=== PATIENT | male | born 1980 ===

== ENCOUNTER 2025-03-23 05:53 | Emergency (ER) | payer SELFPAY ==
[~2025-03-23] VITALS: Ht 172.7 cm; Wt 82.0 kg
[2025-03-23 06:20] VITALS: PULSE 87; RESP 19; O2SAT 92
[2025-03-23] MEDS: PREDNISONE 20MG TABLET PO ONE (06:20)
[2025-03-23] MEDS: ALBUTEROL (0.083%) 2.5MG/3ML NEB HHN SCH (06:20)
[2025-03-23] MEDS: IPRATROPIUM BROMIDE (0.02%) 0.5MG/2.5ML NEB HHN SCH (06:20)
[2025-03-23] MEDS ORDERED: ALBU90AE INH (07:30)
[2025-03-23] MEDS ORDERED: P50 PO (07:30)
[2025-03-23 08:02] VITALS: BP 126/80; PULSE 98; RESP 15; TEMP 36.7; O2SAT 95
== END 2025-03-23 08:05 | disposition home or self-care (01) ==
LOC: ER 05:53
DX: J45.901 Unspecified asthma with (acute) exacerbation (principal); Z79.52 Long term (current) use of systemic steroids
CPT/HCPCS: 94640; 93005; 99283; J7512; Z7610 ×4; 94070; 94664